=== PATIENT | female | born 2000 | race Caucasian/White ===

== ENCOUNTER 2021-01-03 20:40 | Observation (INO) | payer MEDICAID ==
[~2021-01-03] VITALS: Ht 154.9 cm; Wt 74.4 kg
[2021-01-03] MEDS ORDERED: PROP10TA10 PO (21:48)
[2021-01-03] MEDS ORDERED: QUET25TA PO (21:48)
[2021-01-03 21:51] VITALS: BP 113/76
[2021-01-03] MEDS: RINGERS SOLUTION,LACTATED 1,000 ML IV SCH (23:05)
[2021-01-03 23:48] LABS: COVID AG,FIA SOURCE NASOPHARYNGEAL
[2021-01-04] MEDS ORDERED: PROP40TA7 PO (03:01)
[2021-01-04] MEDS ORDERED: QUET300T2 PO (03:01)
[2021-01-04] MEDS: RINGERS SOLUTION,LACTATED 1,000 ML IV SCH (06:53)
[2021-01-04 14:49] LABS: BASOPHILS % (AUTO) 0.2 % (0.0-2.0); EOSINOPHILS % (AUTO) 0.7 % (1.0-6.0); HEMATOCRIT 31.8 % (36-46); LYMPHOCYTES # (AUTO) 1.5 K/uL (1.0-4.8); LYMPHOCYTES % (AUTO) 11.3 % (22.0-44.0); MEAN CORPUSCULAR HEMOGLOBIN 23.5 pg (26.0-34.0); MEAN CORPUSCULAR HGB CONC 31.5 G/dL (31.0-37.0); MEAN CORPUSCULAR VOLUME 75 fL (80-100); MONOCYTES # (AUTO) 1.2 K/uL (0.1-1.0); MONOCYTES % (AUTO) 8.5 % (2.0-9.0); NEUTROPHILS # (AUTO) 10.8 K/uL (1.8-7.7); NEUTROPHILS % (AUTO) 79.3 % (40.0-70.0); PLATELET COUNT (AUTO)-OB 392 K/uL (150-450); RED BLOOD CELL COUNT(AUTO) 4.26 MIL/uL (4.00-5.20); RED CELL DISTRIBUTION WIDTH 15.2 % (11.5-14.5)
== END 2021-01-04 15:00 | disposition home or self-care (01) ==
LOC: 4S 20:40
PROVIDERS: ADMIT Obstetrics & Gynecology; ATTEND Obstetrics & Gynecology
DX: O62.9 Abnormality of forces of labor, unspecified (principal); Z20.822 Contact with and (suspected) exposure to COVID-19; O26.893 Other specified pregnancy related conditions, third trimester; R10.2 Pelvic and perineal pain; Z3A.37 37 weeks gestation of pregnancy; Z79.899 Other long term (current) drug therapy
CPT/HCPCS: 36415; 59025; 76811; 80307; 81001; 85025; 86592; 86762; 87340; 87426; 96360; 96361; 99219 ×2; J7120 ×2